=== PATIENT | male | born 1990 | race Hispanic/Latino ===

== ENCOUNTER 2018-06-04 16:43 | Emergency (ER) | payer SELFPAY ==
[2018-06-04 17:47] LABS: Urine Blood NEGATIVE (NEG); Urine Glucose NEGATIVE (NEG); Urine Protein NEGATIVE (NEG); Urine Specific Gravity 1.025 (1.005-1.030)
[2018-06-04 17:49] LABS: Absolute Lymphocytes (CBC) 1.8 K/uL (0.7-4.9); Absolute Monocytes 1.1 K/uL (0.1-1.3); Absolute Neutrophil 11.3 K/uL (1.8-8.0); Basophils % 0.7 % (0-1.3); Eosinophils % 0.2 % (0-4.4); Hematocrit 44.3 % (39.6-49.0); Lymphocytes % 12.6 % (15.3-44.8); MCH 29.9 pg (27.0-35.0); MCV 88.6 fL (80-100); MPV 9.6 fL (7.6-11.3); Monocytes % 7.8 % (3.3-12.3)
--- NOTE | 2018-06-04 17:58 | RAD REPORT ---
EXAM DESCRIPTION: CT - CTHCSPWOC - 06/04/2018 5:23 pm CLINICAL HISTORY: Trauma, head and neck injury. Headache COMPARISON: Head C Spine Mpr Wo Con dated 09/22/2016 TECHNIQUE: Axial 5 mm thick images of the head were obtained. Axial 2 mm thick images of the cervical spine were obtained with sagittal and coronal reconstruction images generated and reviewed. All CT scans are performed using dose optimization technique as appropriate and may include automated exposure control or mA/KV adjustment according to patient size. FINDINGS: CT HEAD WITHOUT CONTRAST: No acute hemorrhage, hydrocephalus or extra-axial collection is identified.Small left posterior scalp hematoma.No areas of brain edema or midline shift. The paranasal sinuses and mastoids are clear.The calvarium is intact. CT CERVICAL SPINE WITHOUT CONTRAST: No fracture or subluxation.No prevertebral soft tissues swelling is identified. IMPRESSION: No acute intracranial or cervical spine findings.
[2018-06-04 18:11] LABS: BUN Blood Urea Nitrogen 14 mg/dL (7-18); Bicarbonate 29 mmol/L (21-32); Glucose Level 105 mg/dL (74-106); Sodium Level 139 mmol/L (136-145)
[2018-06-04 18:12] LABS: Alcohol Serum/Plasma < 3 mg/dL (<3)
[2018-06-04 18:38] LABS: Barbiturates NEGATIVE (NEGATIVE); Benzodiazepines NEGATIVE (NEGATIVE); Cocaine NEGATIVE (NEGATIVE); METHAMPHETAM NEGATIVE (NEGATIVE); Methadone NEGATIVE (NEGATIVE); Opiates NEGATIVE (NEGATIVE); Phencyclidine NEGATIVE (NEGATIVE); THC Cannibis NEGATIVE (NEGATIVE)
[2018-06-04] MEDS ORDERED: ACETAMINOPHEN 325 MG TABLET ONE (20:02)
--- NOTE | 2018-06-04 20:12 | EDPHYS ---
Physician Documentation [facility] Name: Alonso Luna Age: 27 yrs Sex: Male : 1990 Arrival Date: 06/04/2018 Time: 16:48 Bed 14 Private MD: ED Physician Dionicio Ventura HPI: 06/05 01:00 This 27 yrs old Male presents to ER via [employer] with complaints of pm1 Headache. 01:00 The patient complains of pain to the forehead. The patient describes the headache as pm1 aching. Onset: The symptoms/episode began/occurred 2 day(s) ago. Associated signs and symptoms: Pertinent negatives: dizziness, fever, nausea, neck stiffness, rash, vision changes, vision loss, vomiting, weakness. Severity of symptoms: in the emergency department the pain has improved. Headache History: Denies prior headaches. The symptoms are alleviated by nothing. the symptoms are aggravated by nothing. The patient has not experienced similar symptoms in the past. The patient has not recently seen a physician. Patient fell two days ago when he tripped and hit the side of his head against his truck. Patient reports headache possibly from the injury or from the stress that he is experiencing from not know what is happening with his daughter in [place]. She is under the care of her mother who is using drugs. Patient is not having abdominal pain now, but has had some on and off abdominal pain. Historical: - Allergies: 06/04 16:51 No Known Allergies; hb - Home Meds: 16:51 None [Active]; hb - PMHx: 16:51 None; hb - PSHx: 16:51 Appendectomy; hb - Immunization history:: Adult Immunizations not up to date. - Social history:: Smoking status: Patient/guardian denies using tobacco. - Ebola Screening: : No symptoms or risks identified at this time. ROS: 06/05 01:00 Constitutional: Negative for fever, chills, and weight loss, Eyes: Negative for injury, pm1 pain, redness, and discharge, ENT: Negative for injury, pain, and discharge, Neck: Negative for injury, pain, and swelling, Cardiovascular: Negative for chest pain, palpitations, and edema, Respiratory: Negative for shortness of breath, cough, wheezing, and pleuritic chest pain, Abdomen/GI: Negative for abdominal pain, nausea, vomiting, diarrhea, and constipation, Back: Negative for injury and pain, : Negative for injury, bleeding, discharge, and swelling, MS/Extremity: Negative for injury and deformity, Skin: Negative for injury, rash, and discoloration. Neuro: Positive for headache, Negative for loss of consciousness. Exam: 01:00 Constitutional: This is a well developed, well nourished patient who is awake, alert, pm1 and in no acute distress. Head/Face: Normocephalic, atraumatic. Eyes: Pupils equal round and reactive to light, extra-ocular motions intact. Lids and lashes normal. Conjunctiva and sclera are non-icteric and not injected. Cornea within normal limits. Periorbital areas with no swelling, redness, or edema. ENT: Nares patent. No nasal discharge, no septal abnormalities noted. Tympanic membranes are normal and external auditory canals are clear. Oropharynx with no redness, swelling, or masses, exudates, or evidence of obstruction, uvula midline. Mucous membranes moist. Neck: Trachea midline, no thyromegaly or masses palpated, and no cervical lymphadenopathy. Supple, full range of motion without nuchal rigidity, or vertebral point tenderness. No Meningismus. Chest/axilla: Normal chest wall appearance and motion. Nontender with no deformity. No lesions are appreciated. Cardiovascular: Regular rate and rhythm with a normal S1 and S2. No gallops, murmurs, or rubs. Normal PMI, no JVD. No pulse deficits. Respiratory: Lungs have equal breath sounds bilaterally, clear to auscultation and percussion. No rales, rhonchi or wheezes noted. No increased work of breathing, no retractions or nasal flaring. Abdomen/GI: Soft, non-tender, with normal bowel sounds. No distension or tympany. No guarding or rebound. No evidence of tenderness throughout. Back: No spinal tenderness. No costovertebral tenderness. Full range of motion. Skin: Warm, dry with normal turgor. Normal color with no rashes, no lesions, and no evidence of cellulitis. MS/ Extremity: Pulses equal, no cyanosis. Neurovascular intact. Full, normal range of motion. 01:00 Neuro: Orientation: is normal, Motor: moves all fours. Vital Signs: 06/04 16:50 BP 150 / 99; Pulse 110; Resp 16; Temp 98.2; Pulse Ox 100% on R/A; Pain 4/10; hb 17:45 BP 136 / 86; Pulse 95; Resp 16; Pulse Ox 100% on R/A; hb 19:08 BP 115 / 79; Pulse 64; Resp 16; Pulse Ox 96% on R/A; aa1 20:16 BP 128 / 89; Pulse 85; Resp 16; Pulse Ox 98% on R/A; aa1 MDM: 16:51 Patient medically screened. pm1 19:32 Data reviewed: vital signs. Data interpreted: Pulse oximetry: on room air is 96 %. pm1 Interpretation:. 20:10 Counseling: I had a detailed discussion with the patient and/or guardian regarding: the pm1 historical points, exam findings, and any diagnostic results supporting the discharge/admit diagnosis, lab results, radiology results, the need for outpatient follow up, to return to the emergency department if symptoms worsen or persist or if there are any questions or concerns that arise at home. 06/04 17:02 Order name: Basic Metabolic Panel; Complete Time: 18:50 pm1 06/04 17:02 Order name: CBC with Diff; Complete Time: 18:02 pm1 06/04 17:02 Order name: ETOH Level; Complete Time: 18:50 pm1 06/04 17:02 Order name: Salicylate; Complete Time: 18:50 pm1 06/04 17:02 Order name: Urine Drug Screen; Complete Time: 18:50 pm1 06/04 17:38 Order name: Urine Dipstick--Ancillary (enter results); Complete Time: 18:02 bd 06/04 17:02 Order name: CT Head C Spine; Complete Time: 18:02 pm1 06/04 17:02 Order name: IV Saline Lock; Complete Time: 17:27 pm1 06/04 17:02 Order name: Labs collected and sent; Complete Time: 17:27 pm1 06/04 17:02 Order name: Urine Dipstick-Ancillary (obtain specimen); Complete Time: 17:39 pm1 06/04 19:36 Order name: US Abdomen Limited; Complete Time: 20:24 pm1 Administered Medications: 20:10 Drug: Tylenol 650 mg Route: PO; aa1 20:30 Follow up: Response: No adverse reaction; Medication administered at discharge. aa1 Disposition: 06/04/18 20:11 Discharged to Home. Impression: Superficial injury of head, Headache, Unspecified abdominal pain. - Condition is Stable. - Discharge Instructions: Abdominal Pain, Adult, Head Injury, Adult, General Headache Without Cause. - Medication Reconciliation Form, Thank You Letter form. - Follow up: Emergency Department; When: As needed; Reason: Worsening of condition. Follow up: Private Physician; When: 2 - 3 days; Reason: Recheck today's complaints, Continuance of care, Re-evaluation by your physician. - Problem is new. - Symptoms have improved. Addendum: 06/07/2018 10:15 Co-signature as Attending Physician, Dionicio Ventura MD I agree with the assessment and k dr plan of care. Signatures: Dispatcher [employer] EDMS Azul Valera RN RN aa1 Dionicio Ventura MD MD [facility] Trevon Raymundo NP CIVIL ENGINEERING TEACHER pm1 Lilliam Bruce RN RN Corrections: (The following items were deleted from the chart) 06/04 20:13 20:11 06/04/2018 20:11 Discharged to Home. Impression: Superficial injury of head. pm1 Condition is Stable. Forms are Medication Reconciliation Form, Thank You Letter, Antibiotic Education, Prescription Opioid Use. Follow up: Emergency Department; When: As needed; Reason: Worsening of condition. Follow up: Private Physician; When: 2 - 3 days; Reason: Recheck today's complaints, Continuance of care, Re-evaluation by your physician. Problem is new. Symptoms have improved. pm1 20:14 20:13 06/04/2018 20:11 Discharged to Home. Impression: Superficial injury of head; pm1 Headache. Condition is Stable. Forms are Medication Reconciliation Form, Thank You Letter, Antibiotic Education, Prescription Opioid Use. Follow up: Emergency Department; When: As needed; Reason: Worsening of condition. Follow up: Private Physician; When: 2 - 3 days; Reason: Recheck today's complaints, Continuance of care, Re-evaluation by your physician. Problem is new. Symptoms have improved. pm1 20:33 20:14 06/04/2018 20:11 Discharged to Home. Impression: Superficial injury of head; aa1 Headache; Unspecified abdominal pain. Condition is Stable. Discharge Instructions: Head Injury, Adult, General Headache Without Cause. Forms are Medication Reconciliation Form, Thank You Letter. Follow up: Emergency Department; When: As needed; Reason: Worsening of condition. Follow up: Private Physician; When: 2 - 3 days; Reason: Recheck today's complaints, Continuance of care, Re-evaluation by your physician. Problem is new. Symptoms have improved. pm1
--- NOTE | 2018-06-04 20:12 | ER ---
Nurse's Notes [facility] Name: Alonso Luna Age: 27 yrs Sex: Male : 1990 Arrival Date: 06/04/2018 Time: 16:48 Bed 14 Private MD: Diagnosis: Superficial injury of head;Headache;Unspecified abdominal pain Presentation: 06/04 16:49 Presenting complaint: Patient states: "I feel weak for the past couple of days, I think hb it is stress because my kicked me out and my son ." In Police custody, handcuffed, officer at bedside. Transition of care: patient was not received from another setting of care. Onset of symptoms was June 04, 2018. Risk Assessment: Do you want to hurt yourself or someone else? Patient reports no desire to harm self or others. Initial Sepsis Screen: Does the patient meet any 2 criteria? No. Patient's initial sepsis screen is negative. Does the patient have a suspected source of infection?. Care prior to arrival: None. 16:49 Method Of Arrival: Law Enforcement: [facility] 16:49 Acuity: MERLIN 3 hb Historical: - Allergies: 16:51 No Known Allergies; hb - Home Meds: 16:51 None [Active]; hb - PMHx: 16:51 None; hb - PSHx: 16:51 Appendectomy; hb - Immunization history:: Adult Immunizations not up to date. - Social history:: Smoking status: Patient/guardian denies using tobacco. - Ebola Screening: : No symptoms or risks identified at this time. Screenin:52 Abuse screen: Denies threats or abuse. Denies injuries from another. Nutritional hb screening: No deficits noted. Tuberculosis screening: No symptoms or risk factors identified. Fall Risk None identified. Assessment: 16:55 General: Appears in no apparent distress. Behavior is calm, cooperative. Pain: Pain hb currently is 3 out of 10 on a pain scale. Neuro: Level of Consciousness is awake, alert, obeys commands, Oriented to person, place, time, situation, Video Game Engineer are equal bilaterally Moves all extremities. Gait is steady, Speech is normal, Facial symmetry appears normal, Pupils are PERRLA, Intact Reports headache weakness. Cardiovascular: Heart tones S1 S2 present Capillary refill < 3 seconds Patient's skin is warm and dry. Respiratory: Airway is patent Trachea midline Respiratory effort is even, unlabored, Respiratory pattern is regular, symmetrical, Breath sounds are clear bilaterally. GI: No signs and/or symptoms were reported involving the gastrointestinal system. : No signs and/or symptoms were reported regarding the genitourinary system. EENT: No signs and/or symptoms were reported regarding the EENT system. Derm: No signs and/or symptoms reported regarding the dermatologic system. Skin is intact, is healthy with good turgor. Musculoskeletal: No signs and/or symptoms reported regarding the musculoskeletal system. 17:39 Reassessment: Patient appears in no apparent distress at this time. Patient and/or hb family updated on plan of care and expected duration. Pain level reassessed. Patient is alert, oriented x 3, equal unlabored respirations, skin warm/dry/pink. 18:12 Reassessment: Patient appears in no apparent distress at this time. No changes from hb previously documented assessment. Patient and/or family updated on plan of care and expected duration. Pain level reassessed. Patient is alert, oriented x 3, equal unlabored respirations, skin warm/dry/pink. Patient is alert/active/playful, equal unlabored respirations, skin warm/dry/pink. Officer remains at bedside. 19:10 Reassessment: Patient appears in no apparent distress at this time. Patient and/or aa1 family updated on plan of care and expected duration. Pain level reassessed. Patient is alert, oriented x 3, equal unlabored respirations, skin warm/dry/pink. Awaiting provider reassessment. 20:00 Reassessment: Patient appears in no apparent distress at this time. Patient and/or aa1 family updated on plan of care and expected duration. Pain level reassessed. Patient is alert, oriented x 3, equal unlabored respirations, skin warm/dry/pink. Pt back from u/s. 20:30 Reassessment: Patient appears in no apparent distress at this time. Patient is alert, aa1 oriented x 3, equal unlabored respirations, skin warm/dry/pink. Discussed d/c \\T\\ f/u instructions with pt; denies questions or concerns at this time Patient states feeling better. Vital Signs: 16:50 BP 150 / 99; Pulse 110; Resp 16; Temp 98.2; Pulse Ox 100% on R/A; Pain 4/10; hb 17:45 BP 136 / 86; Pulse 95; Resp 16; Pulse Ox 100% on R/A; hb 19:08 BP 115 / 79; Pulse 64; Resp 16; Pulse Ox 96% on R/A; aa1 20:16 BP 128 / 89; Pulse 85; Resp 16; Pulse Ox 98% on R/A; aa1 ED Course: 16:48 Patient arrived in ED. hb 16:50 Triage completed. hb 16:50 Trevon Raymundo NP is PHCP. pm1 16:50 Dionicio Ventuar MD is Attending Physician. pm1 16:51 Arm band placed on right wrist. hb 16:55 Patient has correct armband on for positive identification. Bed in low position. Call hb light in reach. Side rails up X 1. [place] [employer] officer at bedside, pt remains handcuffed. 17:14 Lilliam Bruce, RN is Primary Nurse. hb 17:15 Inserted saline lock: 20 gauge in right hand, using aseptic technique. Blood collected. cc3 17:23 CT Head C Spine In Process Unspecified. EDMS 20:12 US Abdomen Limited In Process Unspecified. EDMS 20:30 No provider procedures requiring assistance completed. IV discontinued, intact, aa1 bleeding controlled, No redness/swelling at site. Pressure dressing applied. Administered Medications: 20:10 Drug: Tylenol 650 mg Route: PO; aa1 20:30 Follow up: Response: No adverse reaction; Medication administered at discharge. aa1 Outcome: 20:11 Discharge ordered by MD. pm1 20:30 Discharged to Law Enforcement aa1 20:30 Condition: good 20:30 Discharge instructions given to police, Instructed on discharge instructions, follow up and referral plans. Demonstrated understanding of instructions, follow-up care. 20:33 Patient left the ED. aa1 Signatures: Dispatcher [employer] Azul Bejarano RN RN aa1 Trevon Raymundo NP OCTAVE BOARD RACKER pm1 Lilliam Bruce, DANNY RN Lucia Milton cc3
--- NOTE | 2018-06-04 20:20 | RAD REPORT ---
EXAM DESCRIPTION: US - Abdomen Exam Limited - 06/04/2018 8:12 pm CLINICAL HISTORY: EPIGASTRIC PAIN COMPARISON: No comparisons FINDINGS: The gallbladder demonstrates no gallstones. No pericholecystic fluid or gallbladder wall t hickening. The common bile duct is normal measuring 4 mm. The liver demonstrates no findings of intrahepatic biliary dilatation. IMPRESSION: Unremarkable examination.
== END 2018-06-04 20:33 | disposition home or self-care (01) ==
LOC: ER 16:43
DX: S00.90XA Unspecified superficial injury of unspecified part of head, initial encounter (principal); R10.9 Unspecified abdominal pain; W01.198A Fall on same level from slipping, tripping and stumbling with subsequent striking against other object, initial encounter; Y93.9 Activity, unspecified; Y92.9 Unspecified place or not applicable
CPT/HCPCS: 36415; 70450; 72125; 76705; 80048; 80307; 80320; 80329; 81003; 85025; 99284